=== PATIENT | female | born 1990 | race Asian ===

== ENCOUNTER 2016-10-19 22:32 | Emergency (ER) | payer BC, OTHER ==
--- NOTE | 2016-10-19 22:34 | PDOC ---
History of Present Illness - General Chief Complaint: Pain, Acute Stated Complaint: RT FLANK/BACK PAIN History Source: Patient Exam Limitations: No Limitations - History of Present Illness Initial Comments: 10/19/16 22:40 26 yo healthy female was seen yesterday for sinusitis, cleocin, steroid and inhaler, was laying down tonight when she suddenly got pain in the right flank that radiated around to her groin. no hematuria, no relief with bm. came straight to the hospital. lmp one week ago. Denies . No other symptoms, No history of kidney stone. Timing/Duration: 1 hour Severity: severe Modifying Factors: improves with: other (nothing.) Associated Symptoms: denies: denies symptoms Past History - Past Medical History Allergies/Adverse Reactions: Allergies Allergy/AdvReac Type Severity Reaction Status Date / Time No Known Allergies Allergy Verified 10/18/16 12:51 Home Medications: Ambulatory Orders Albuterol 0.083% Nebulizer Rossana [Ventolin 0.083% Nebulizer Soln -] 1 amp NEB QID PRN #1 box 10/18/16 Albuterol Sulfate Inhaler - [Ventolin HFA Inhaler -] 1 - 2 inh PO Q4H PRN #1 inhaler 10/18/16 Clindamycin [Cleocin -] 300 mg PO BID 10/18/16 Cholecalciferol (Vitamin D3) [Vitamin D3 -] 400 unit PO DAILY 10/19/16 Norgestimate-Ethinyl Estradiol [Tri-Sprintec Tablet] 1 each PO DAILY 10/19/16 Prednisone 10/19/16 Dicyclomine HCl [Bentyl -] 20 mg PO Q8H #21 tablet 10/20/16 Ondansetron [Ondansetron Odt] 8 mg PO TID #30 tab.rapdis 10/20/16 Oxycodone HCl/Acetaminophen [Percocet 5-325 mg Tablet] 1 tab PO Q6H #20 tablet MDD 5 10/20/16 Anemia: No Asthma: Yes Cancer: No Cardiac Disorders: No CVA: No COPD: No CHF: No Dementia: No Diabetes: No GI Disorders: No Disorders: No HTN: No Hypercholesterolemia: No Liver Disease: No Seizures: No Thyroid Disease: No - Surgical History Abdominal Surgery: No Appendectomy: No Cardiac Surgery: No Cholecystectomy: No Lung Surgery: No Neurologic Surgery: No Orthopedic Surgery: No - Immunization History Td Vaccination: Yes - Psycho/Social/Smoking Cessation Hx Anxiety: No Suicidal Ideation: No Smoking Status: No Smoking History: Never smoked Have you smoked in the past 12 months: No Number of Cigarettes Smoked Daily: 0 Hx Alcohol Use: No Drug/Substance Use Hx: No Substance Use Type: None Hx Substance Use Treatment: No Review of Systems - Review of Systems Constitutional: Yes: See HPI HEENTM: Yes: See HPI Respiratory: Yes: See HPI Cardiac (ROS): No: Symptoms Reported ABD/GI: Yes: See HPI : Yes: See HPI Musculoskeletal: No: Symptoms Reported Integumentary: No: Symptoms Reported Neurological: No: Symptoms reported Psychiatric: No: Anxiety, Depression, Emotional Problems Endocrine: No: Symptoms Reported Hematologic/Lymphatic: No: Symptoms Reported All Other Systems: Reviewed and Negative *Physical Exam - Physical Exam General Appearance: No: Apparent Distress HEENT: positive: EOMI, BENJAMIN, Normal ENT Inspection Neck: positive: Supple Respiratory/Chest: positive: Lungs Clear, Normal Breath Sounds Cardiovascular: positive: Regular Rhythm, Regular Rate Gastrointestinal/Abdominal: positive: Normal Bowel Sounds, Flat, Soft. negative : Tender, Guarding, Rebound, Hepatomegaly, Spleenomegaly Lymphatic: negative: Adenopathy, Tenderness Musculoskeletal: positive: Normal Inspection Extremity: positive: Normal Capillary Refill, Normal Inspection Integumentary: positive: Normal Color, Dry, Warm Neurologic: positive: rn procedures II-XII NML intact, Fully Oriented, Alert, Normal Mood/ Affect ED Treatment Course - LABORATORY CBC & Chemistry Diagram: 10/19/16 22:50 10/19/16 22:50 Medical Decision Making - Medical Decision Making 10/20/16 00:[address] Abdomen/Pelvis - normal/nondiagnostic/benign. Will DC home with symptomatic supportive treatement and have her follow up with her doctor tomorrow. *DC/Admit/Observation/Transfer Diagnosis at time of Disposition: Flank pain Abdominal pain Qualifiers: Abdominal location: right lower quadrant Qualified Code(s): R10.31 - Right lower quadrant pain - Discharge Dispostion Disposition: HOME Condition at time of disposition: Good Admit: No - Prescriptions Prescriptions: Dicyclomine HCl [Bentyl -] 20 mg PO Q8H #21 tablet Oxycodone HCl/Acetaminophen [Percocet 5-325 mg Tablet] 1 tab PO Q6H #20 tablet MDD 5 Ondansetron [Ondansetron Odt] 8 mg PO TID #30 tab.rapdis - Patient Instructions Printed Discharge Instructions: DI for Abdominal Pain-Adult Additional Instructions: Ely- Your CT scan does not show a stone, or any problem right now. Your lab tests are normal. It is not clear why you are having such pain. I sent prescriptions for pain, cramping and nausea/vomiting to your pharmacy. Rest, Clear Liquids Only, Meds as needed, Follow up with your doctor later today. Errol- Dr. Subhash Colon
[2016-10-19] MEDS ORDERED: ONDANSETRON 4 MG/2 ML VIAL IVPUSH ONE ×2 (22:35→23:53)
[2016-10-19] MEDS ORDERED: morphine CARPU-JECT 4 MG/1 ML DISP.SYRIN IVPUSH ONE ×2 (22:35→23:53)
[2016-10-19] MEDS ORDERED: KETOROLAC TROMETHAMINE 30 MG/1 ML VIAL IM ONE (22:35)
[2016-10-19] MEDS ORDERED: SODIUM CHLORIDE 1,000 ML IV STA (22:36)
[2016-10-19 22:40] VITALS: BP 141/91; PULSE 97; TEMP 97.8; BMI 37.1
[2016-10-19] MEDS ORDERED: ONDANSETRON 4 MG/2 ML VIAL ONE (22:45)
[2016-10-19] MEDS ORDERED: morphine CARPU-JECT 10 MG/1 ML DISP.SYRIN ONE (22:45)
[2016-10-19] MEDS ORDERED: KETOROLAC TROMETHAMINE 30 MG/1 ML VIAL ONE (22:45)
[2016-10-19 23:03] LABS: PH,URINE 6.5 (4.5-8); URINE APPEARANCE Clear; URINE BILIRUBIN Negative (NEGATIVE); URINE GLUCOSE (UA) Trace (NEGATIVE); URINE KETONE Trace (NEGATIVE); URINE LEUK ESTERASE Negative (NEGATIVE); URINE NITRITE Negative (NEGATIVE); URINE UROBILINOGEN 0.2 E.U/dl (0.2-1.0)
[2016-10-19 23:15] LABS: BASOPHIL 0.3 % (0-2.0); EOSINOPHIL 0.2 % (0-4.5); MCH 25.9 pg (25.7-33.7); MCHC 31.9 g/dl (32.0-36.0); MEAN CELL VOLUME 81.3 fl (80-96); NEUTROPHILS 75.5 % (42.8-82.8); PLATELET COUNT 335 K/MM3 (134-434); RDW 11.9 % (11.6-15.6); WHITE BLOOD COUNT 11.8 K/mm3 (4.0-10.0)
[2016-10-19 23:26] LABS: URINE BLOOD 1+ (NEGATIVE); URINE COLOR YELLOW; URINE PROTEIN 1+ (NEGATIVE)
[2016-10-19 23:29] LABS: ALBUMIN 3.7 g/dl (3.5-5.0); ALK PHOS 88 U/L (32-92); ANION GAP 5 (8-16); BILIRUBIN,TOTAL 0.3 mg/dl (0.2-1.0); CALCIUM 8.9 mg/dl (8.4-10.2); CO2 27 mmol/L (22-28); CREATININE 0.7 mg/dl (0.6-1.3); GLUCOSE,RANDOM 270 mg/dl (74-106); SGOT/AST 36 U/L (10-42); SGPT/ALT 20 U/L (10-40); TOT PROT 7.3 g/dl (6.4-8.3)
[2016-10-20] MEDS ORDERED: SIMETHICONE 80 MG TAB.CHEW (FP) PO ONE (00:01)
[2016-10-20] MEDS ORDERED: SIMETHICONE 80 MG TAB.CHEW (FP) ONE (00:09)
== END 2016-10-20 00:21 | disposition home or self-care (01) ==
LOC: FER 22:32
PROC: 3E0233Z Introduction of Anti-inflammatory into Muscle, Percutaneous Approach (ICD-10-PCS; principal; 2016-10-19)
PROC: 3E033NZ Introduction of Analgesics, Hypnotics, Sedatives into Peripheral Vein, Percutaneous Approach (ICD-10-PCS; 2016-10-19)
PROC: 3E033GC Introduction of Other Therapeutic Substance into Peripheral Vein, Percutaneous Approach (ICD-10-PCS; 2016-10-19)
PROC: 3E0337Z Introduction of Electrolytic and Water Balance Substance into Peripheral Vein, Percutaneous Approach (ICD-10-PCS; 2016-10-19)
DX: R10.31 Right lower quadrant pain (principal); J45.909 Unspecified asthma, uncomplicated
CPT/HCPCS: 36415; 74176-TC; 80053; 81003; 81015; 84703; 85025; 87086; 99283-25

== ENCOUNTER 2017-02-25 22:42 | Emergency (ER) | payer BC, OTHER ==
[2017-02-25 22:48] VITALS: BP 119/73; PULSE 87; TEMP 98.3; BMI 40.3
--- NOTE | 2017-02-25 23:29 | PDOC ---
History of Present Illness - General Chief Complaint: Cold Symptoms Stated Complaint: SINUS INFECTION Time Seen by Provider: 02/25/17 22:44 History Source: Patient Exam Limitations: No Limitations - History of Present Illness Initial Comments: 02/25/17 23:25 This is a 27-year-old female who comes in complaining of cough, congestion, exacerbation of her seasonal ALLERGIES. Patient takes Flonase, Zaditor, Rachael pot and other [id number] medications for her seasonal ALLERGIES. Patient said that she gets a sinus infection about 4-5 times a year. Patient comes in thinking she may have an early sign U situs and is asking for antibiotics. Patient denies any fevers or chills. Patient is otherwise healthy. Past medical history:Sinusitis and seasonal ALLERGIES PAST SURGICAL HISTORY: no significant history FAMILY HISTORY: no pertinant history SOCIAL HISTORY: Pt lives with family and is employed. MEDICATIONS: reviewed ALLERGIES: As per nursing notes Review of Systems General: No fevers or chills, no weakness, no weight loss HEENT: No change in vision. No sore throat,. No ear pain CardioVascular: No chest pain or shortness of breath Respiratory:+ cough, or wheezing. Gastrointestinal: no nausea, vomitting, diarrhea or constipation, No rectal bleeding Genitourinary: No dysuria, hematuria, or frequency Musculoskeletal: No joint or muscle pain or swelling Neurologic: No headache, vertigo, dizziness or loss of consciousness Psychiatric: nor depression Skin: No rashes or easy bruising Endocrine: no increased thirst or abnormal weight change Allergic: no skin or latex allergy All other systems reviewed and normal Exam: General: Well-nourished well-developed individual, no acute distress HEENT: Throat: Normal, tonsils normal, no erythema or exudate There is no tenderness on palpation of the frontal or maxillary sinuses. There is no nasal to it. Discharge patient is noted to have a dry cough. Neck: Supple, no meningeal signs, no lymphadenopathy Eyes::Pupils equal reactive and round, extraocular motion intact Chest: Nontender to palpation Cardiac: S1-S2 normal, regular rate and rhythm, no murmurs rubs or gallops Respiratory: Lungs clear to auscultation bilateral Abdomen: Soft, nondistended, normal bowel sounds, nontender to palpation diffusely Extremities: Warm, dry, no cyanosis, clubbing, or edema Skin: No rashes Neuro: Alert and oriented x3, nonfocal exam, grossly intact, normal gait Psych: Normal mood and affect Assessment and plan: This is a 27-year-old female who comes in complaining of cough, congestion and exacerbation of her seasonal ALLERGIES. Patient is already on antihistamines and nasal decongestions. Patient is concerned she may have an early sinusitis. Patient does not have any indication of a sinusitis at this time however I did call a prescription into her pharmacy as she is quite certain she will most likely developed a sinusitis within the next several days. I told patient that if she does not have a fever or symptoms do not worsen she should not take the antibiotics but follow-up with her primary care doctor. Past History - Past Medical History Allergies/Adverse Reactions: Allergies Allergy/AdvReac Type Severity Reaction Status Date / Time No Known Allergies Allergy Verified 10/18/16 12:51 Home Medications: Ambulatory Orders Norgestimate-Ethinyl Estradiol [Tri-Sprintec Tablet] 1 each PO DAILY 10/19/16 Azithromycin 250 mg PO DAILY #6 tab 02/25/17 Cetirizine HCl [Zyrtec -] 10 mg PO DAILY 02/25/17 Anemia: No Asthma: (SEASONAL ALLERGIES) Cancer: No Cardiac Disorders: No CVA: No COPD: No CHF: No Dementia: No Diabetes: No GI Disorders: No Disorders: No HTN: No Hypercholesterolemia: No Liver Disease: No Seizures: No Thyroid Disease: No - Surgical History Abdominal Surgery: Yes (LAPAROSCOPY) Appendectomy: No Cardiac Surgery: No Cholecystectomy: No Lung Surgery: No Neurologic Surgery: No Orthopedic Surgery: No - Immunization History Td Vaccination: Yes - Psycho/Social/Smoking Cessation Hx Anxiety: No Suicidal Ideation: No Smoking Status: No Smoking History: Never smoked Have you smoked in the past 12 months: No Number of Cigarettes Smoked Daily: 0 Hx Alcohol Use: No Drug/Substance Use Hx: No Substance Use Type: None Hx Substance Use Treatment: No *Physical Exam - Vital Signs Last Vital Signs Temp Pulse Resp BP Pulse Ox 98.3 F 87 16 119/73 99 02/25/17 22:46 02/25/17 22:46 02/25/17 22:46 02/25/17 22:46 02/25/17 22:46 *DC/Admit/Observation/Transfer Diagnosis at time of Disposition: Cough Seasonal allergic rhinitis Qualifiers: Allergic rhinitis trigger: unspecified Qualified Code(s): J30.2 - Other seasonal allergic rhinitis - Discharge Dispostion Disposition: HOME Condition at time of disposition: Stable - Prescriptions Prescriptions: Azithromycin 250 mg PO DAILY #6 tab - Patient Instructions Additional Instructions: continue all of your seasonal ALLERGY medications as prescribed. If you develop increasing pain in the area of his sinuses along with fever and green or yellow discharge from your nose get the prescription filled for azithromycin take as prescribed. Return to the emergency department immediately with ANY new, persistent or worsening symptoms. Continue any medications as previously prescribed by your physician. You should follow up with your primary doctor as soon as possible regarding today's emergency department visit. . Please make sure your doctor reviews the results of your emergency evaluation. Thank you for coming to the Emergency Department today for your care. It was a pleasure to see you today. Please note that your evaluation is INCOMPLETE until you follow-up with your doctor.
== END 2017-02-25 23:34 | disposition home or self-care (01) ==
LOC: FER 22:42
DX: J30.2 Other seasonal allergic rhinitis (principal); R05 Cough
CPT/HCPCS: 99282-25

== ENCOUNTER 2018-10-07 21:05 | Emergency (ER) | payer BC, OTHER ==
[2018-10-07 21:14] VITALS: BP 120/72; PULSE 94; TEMP 98; BMI 81.8
--- NOTE | 2018-10-07 22:21 | PDOC ---
History of Present Illness - History of Present Illness Initial Comments: This patient is a 28 year old female, with PMHx of migraines, gestational diabetes, asthma, who presents with vaginal itching and anal irritation for a couple of days. Patient states that a couple of days ago she began experiencing anal irritation, and now she states that it has spread to her vaginal area. She states that the irritation has been getting progressively worse and she has been experiencing extreme itchiness, especially at night. She states that when she wiped, she noticed a white strip, which looked like a pinworm. She wiped a second time and noticed another white strip. She states that she has an 11 month old, 2 year old, and 3 year old and states that they havent been itching or seem to be infected. Denies recent travel, unusual water ingestion. Abd and perianal. normal No evidence of hemorrhoids, lesions, or worms. PCP: Fozia Koo 10/07/18 22:26 <Ely Faulkner - Last Filed: 10/07/18 22:26> <Mercedes Barbosa - Last Filed: 10/08/18 01:55> - General Chief Complaint: Itching Stated Complaint: ANAL IRRITATION,VAGINAL ITCHING Time Seen by Provider: 10/07/18 21:16 Past History <Ely Faulkner - Last Filed: 10/07/18 22:26> - Past Medical History Anemia: No Asthma: Yes (SEASONAL ALLERGIES) Cancer: No Cardiac Disorders: No CVA: No COPD: No CHF: No Dementia: No Diabetes: No GI Disorders: No Disorders: No HTN: No Hypercholesterolemia: No Liver Disease: No Seizures: No Thyroid Disease: No - Surgical History Abdominal Surgery: Yes (LAPAROSCOPY ENDOMETRIOSIS) Appendectomy: No Cardiac Surgery: No Cholecystectomy: No Lung Surgery: No Neurologic Surgery: No Orthopedic Surgery: No - Immunization History Td Vaccination: Yes - Suicide/Smoking/Psychosocial Hx Smoking Status: No Smoking History: Never smoked Have you smoked in the past 12 months: No Number of Cigarettes Smoked Daily: 0 Information on smoking cessation initiated: No Hx Alcohol Use: No Drug/Substance Use Hx: No Substance Use Type: None Hx Substance Use Treatment: No <Mercedes Barbosa - Last Filed: 10/08/18 01:55> - Past Medical History Allergies/Adverse Reactions: Allergies Allergy/AdvReac Type Severity Reaction Status Date / Time No Known Allergies Allergy Verified 10/07/18 21:07 Home Medications: Ambulatory Orders Cetirizine HCl [Zyrtec -] 10 mg PO DAILY 02/25/17 Review of Systems - Review of Systems Comments:: GENERAL/CONSTITUTIONAL: No fever or chills. No weakness. HEAD, EYES, EARS, NOSE AND THROAT: No change in vision. No ear pain or discharge. No sore throat. CARDIOVASCULAR: No chest pain or shortness of breath. RESPIRATORY: No cough, wheezing, or hemoptysis. GASTROINTESTINAL: +anal itching, No nausea, vomiting, diarrhea or constipation. GENITOURINARY: +vaginal itching. No dysuria, frequency, or change in urination. MUSCULOSKELETAL: No joint or muscle swelling or pain. No neck or back pain. SKIN: No rash NEUROLOGIC: No headache, vertigo, loss of consciousness, or change in strength/ sensation. ENDOCRINE: No increased thirst. No abnormal weight change. HEMATOLOGIC/LYMPHATIC: No anemia, easy bleeding, or history of blood clots. ALLERGIC/IMMUNOLOGIC: No hives or skin allergy. 10/07/18 22:27 <Ely Faulkner - Last Filed: 10/07/18 22:26> *Physical Exam - Vital Signs Last Vital Signs Temp Pulse Resp BP Pulse Ox 98 F 94 H 18 120/72 100 10/07/18 21:10 10/07/18 21:10 10/07/18 21:10 10/07/18 21:10 10/07/18 21:10 - Physical Exam Comments: GENERAL: Awake, alert, and fully oriented, in no acute distress ABDOMEN: Soft, nontender, normoactive bowel sounds. No guarding, no rebound. No masses SKIN: Warm, Dry, normal turgor, no rashes or lesions noted. Perianal Exam: No evidence of hemorrhoids, lesions, or worms. 10/07/18 22:28 <Ely Faulkner - Last Filed: 10/07/18 22:26> - Vital Signs Last Vital Signs Temp Pulse Resp BP Pulse Ox 98 F 94 H 18 120/72 100 10/07/18 21:10 10/07/18 21:10 10/07/18 21:10 10/07/18 21:10 10/07/18 21:10 <Mercedes Barbosa - Last Filed: 10/08/18 01:55> Moderate Sedation - Procedure Monitoring Vital Signs: Procedure Monitoring Vital Signs Temperature 98 F 10/07/18 21:10 Pulse Rate 94 H 10/07/18 21:10 Respiratory Rate 18 10/07/18 21:10 Blood Pressure 120/72 10/07/18 21:10 O2 Sat by Pulse Oximetry (%) 100 10/07/18 21:10 <Ely Faulkner - Last Filed: 10/07/18 22:26> - Procedure Monitoring Vital Signs: Procedure Monitoring Vital Signs Temperature 98 F 10/07/18 21:10 Pulse Rate 94 H 10/07/18 21:10 Respiratory Rate 18 10/07/18 21:10 Blood Pressure 120/72 10/07/18 21:10 O2 Sat by Pulse Oximetry (%) 100 10/07/18 21:10 <Mercedes Barbosa - Last Filed: 10/08/18 01:55> Medical Decision Making - Medical Decision Making Documentation has been prepared under my direction and personally reviewed by me in its entirety. I attest that this documented accurately reflects all work, treatment, procedures and medical decision making performed by me. As noted above, this 28-year-old woman presents with a few day history of perianal pruritus, especially severe at night. The itching has now progressed anteriorly to her exterior vulva. The patient was able to obtain strands resembling small worms from her perianal area. Patient has young children (a 2- year-old and 3-year-old). The older child attends daycare; no history of worms in either child or in the patient. No symptoms consistent with worm infestation in either child currently. Exam as noted. No evidence of worms in the vulvar or perianal area. No evidence of other abnormality such as external hemorrhoids seen on exam. Patient brought samples of the worms in paper toweling: Although microscope not available for close examination, gross examination consistent with pinworms. Because of the extreme pruritus, increase of symptoms at night and gross appearance of worms, clinical presentation most consistent with pinworm infestation. Because of the ongoing shortage of albendazole, the patient's [facility] pharmacy([facility]) was called: Albendazole as well as OTC pyrantel are out of stock in this pharmacy. Preliminary call to [facility] in [place] appeared that these medications were in stock at the store. Patient states that she cannot use [facility] with her insurance plan. She states that she would purchase the pyrantel either at [facility] in [place] or another [facility] branch. <Mercedes Barbosa - Last Filed: 10/08/18 01:55> *DC/Admit/Observation/Transfer - Attestations Scribe Attestion: 10/07/18 22:30 Documentation prepared by Ely Faulkner, acting as medical equipment technician for Mercedes Barbosa MD. <Ely Faulkner - Last Filed: 10/07/18 22:26> <Mercedes Barbosa - Last Filed: 10/08/18 01:55> Diagnosis at time of Disposition: Enterobius vermicularis - Discharge Dispostion Disposition: HOME Condition at time of disposition: Stable - Referrals Referrals: Fozia Becker MD [Primary Care Provider] - - Patient Instructions Printed Discharge Instructions: Pinworm Additional Instructions: Pyrantel(Pin-X) 1 g by mouth tomorrow with second dose of 1 g in 2 weeks Follow-up with your doctor within 5 days Have children checked by surveying teacher for presence of worms Return to ER if symptoms persist - Post Discharge Activity
== END 2018-10-07 22:43 | disposition home or self-care (01) ==
LOC: FER 21:05
DX: B80 Enterobiasis (principal)
CPT/HCPCS: 99281-25

== ENCOUNTER 2019-09-13 04:36 | Day surgery (SDC) | payer BC, OTHER ==
[2019-09-11 14:57] VITALS: BMI 38.7
--- NOTE | 2019-09-12 15:42 | HP ---
Satellite [facility] - Chief Complaint Chief Complaint: right wrist mass - Past Medical History Allergies/Adverse Reactions: Allergies Allergy/AdvReac Type Severity Reaction Status Date / Time No Known Allergies Allergy Verified 09/11/19 14:57 ...LMP: 08/26/19 - Current Medications Current Medications: Home Medications Medication Instructions Recorded Cetirizine HCl [Zyrtec -] 10 mg PO DAILY 02/25/17 metFORMIN HCL [Metformin HCl] 500 mg PO BID 09/11/19 Satellite Physical Exam - Physical Examination General Appearance: Well Nourished, Well Developed, Alert & Oriented x3 ENT: Clear Lung: Normal air movement Extremities: Other (right wrist- + mass, + ttp, good rom, nvi) Neurological: Intact, Alert, Oriented Satellite Impression/Plan - Impression/Plan Impression: right wrist mass Operative Procedure: right wrist mass excision Date to be Performed: 09/12/19
[2019-09-13] MEDS ORDERED: LIDOCAINE HCL 1%, 10 MG/ML (20ML VIAL) ONE (07:20)
[2019-09-13] MEDS ORDERED: BUPIVACAINE HCL/PF 0.5% (5 MG/ML) 30 ML VIAL IJ ONE ×3 (07:20→07:46)
[2019-09-13] MEDS ORDERED: LIDOCAINE HCL 1%, 10 MG/ML (20ML VIAL) NR ONE (07:46)
[2019-09-13] MEDS ORDERED: PROPOFOL 20 ML ONE ×3 (07:50→07:54)
[2019-09-13] MEDS ORDERED: MIDAZOLAM HCL 2 MG/2 ML SINGLE DOSE VIAL ONE ×3 (07:50→08:17)
[2019-09-13] MEDS ORDERED: SUCCINYLCHOLINE CHLORIDE 200 MG/10 ML SYRINGE ONE (07:50)
[2019-09-13] MEDS ORDERED: LIDOCAINE HCL/PF 2% SDV 5ML VIAL ONE (07:54)
[2019-09-13] MEDS ORDERED: ceFAZolin SODIUM 1 GM VIAL ONE ×2 (08:11)
[2019-09-13] MEDS ORDERED: DEXAMETHASONE SOD PHOSPHATE 4 MG/1 ML VIAL ONE (08:20)
[2019-09-13] MEDS ORDERED: KETOROLAC TROMETHAMINE 30 MG/1 ML VIAL ONE (08:32)
[2019-09-13] MEDS ORDERED: ceFAZolin SODIUM 1 GM VIAL IVPB ONE (08:34)
--- NOTE | 2019-09-13 08:47 | OP ---
Operative Note - Note: Operative Date: 09/13/19 ([facility]) Pre-Operative Diagnosis: right wrist ganglion cyst Operation: right wrist ganglion excision Post-Operative Diagnosis: Same as Pre-op Surgeon: Piter Monge Guest Relations Receptionist: Ochoa Goldman Anesthesia: General, Local Specimens Removed: ganglion cyst Estimated Blood Loss (mls): 0 (tourniquet)
--- NOTE | 2019-09-13 10:18 | OP ---
DATE OF OPERATION: 09/13/2019 PREOPERATIVE DIAGNOSIS: Right wrist dorsal ganglion cyst. POSTOPERATIVE DIAGNOSIS: Right wrist dorsal ganglion cyst. PROCEDURE: Excision, mass/ganglion cyst, right wrist. SURGEON: Piter Monge MD STEEL MELTER: Bartolome Putnam MD TURKEY PINNER: EMMETT Calvo-LINEN CLERK ANESTHESIA: MAC anesthesia with local injection of 15 mL of 0.5% Marcaine and 1% lidocaine mix. DRAINS: None. COMPLICATIONS: None. SPECIMEN: Mass, right wrist, ganglion cyst. BLOOD LOSS: None. BLOOD GIVEN: None. FLUID REPLACEMENT: Plasma-Lyte, 500 mL. INDICATIONS: This patient is a 29-year-old female with the preoperative diagnosis of a recurrent painful mass on the dorsal aspect of the right wrist, likely a ganglion cyst. After understanding the potential risks, complications, alternatives and benefits of surgery versus nonsurgical treatment the patient elected to undergo this procedure. DESCRIPTION OF PROCEDURE: The patient was brought to the operating room, peripheral IV placed and IV sedation given. Ancef 2 g IV were given. MAC anesthesia was induced. The right upper extremity was prepped and draped in sterile fashion. A longitudinal incision marked out with a marking pen. Marcaine 0.5% and 1% lidocaine mix, 10 mL, was injected in and around the surgical incision. The right upper extremity was then elevated, exsanguinated with an Esmarch bandage and tourniquet inflated to 250 mmHg. A No. 15 scalpel blade was utilized to cut down through the skin, subcutaneous tissue. Hemostasis achieved with the bipolar cautery. Dissection done through the deep dermal layer. A small cricket and then Weitlaner retractor were placed into the wound. There was an obvious mass underneath the dorsal extensor retinaculum. The retinaculum was incised longitudinally. More of this mass then pushed through dorsally. I was able to separate it from the surrounding inflammatory tenosynovium and the extensor tendons. The Weitlaner retractor was adjusted to include the extensor tendons. I was then able to identify its relatively wide stalk going down to the dorsal wrist compartment. Circumferential dissection was done. It was decapitated at its base and passed off the field as specimen. I was able to excise the entire mass and the stalk. The area was copiously irrigated and washed out. The base was cauterized. I did not see any other abnormal tissue. The area was copiously irrigated and washed out again and bathed with local anesthetic. The deep dermal layer was closed with 4-0 undyed Vicryl. Final skin reapproximation was done with a running subcuticular 4- Biosyn stitch. The area was then washed and dried and covered with Steri-Strips, 4 x 4 gauze, fluffs between the fingers, Webril and Coban. Tourniquet was taken down after a total tourniquet time of 19 minutes. BARTOLOME PUTNAM M.D. [id number]
[2019-09-13] MEDS ORDERED: ONDANSETRON 4 MG/2 ML VIAL IVPUSH PRN (10:26)
[2019-09-13] MEDS ORDERED: oxyCODONE HCL 5 MG TABLET PO PRN ×2 (10:26)
[2019-09-13] MEDS ORDERED: LACTATED RINGERS SOLUTION 1,000 ML IV SCH (10:30)
[2019-09-13 10:45] VITALS: BP 97/61; PULSE 74; TEMP 98
--- NOTE | 2019-09-15 19:06 | PATH ---
Surgical Pathology Report Patient Name: QIANA GIBBONS [facility]. Rec. #: [id number] /Age/Gender: 1990 (Age: 29) / F Account: [id number] Location: [facility] SURGICAL Taken: 09/13/2019 Received: 09/13/2019 Reported: 09/15/2019 Physicians: Ochoa Goldman M.D. Specimen(s) Received RIGHT WRIST GANGLION Clinical History Right wrist mass ganglion cyst Final Diagnosis WRIST, GANGLION CYST, RIGHT, EXCISION: BENIGN DENSE FIBROCONNECTIVE TISSUE WITH DEGENERATIVE CHANGES CONSISTENT WITH GANGLION CYST. Electronically Signed Concepción Hazel M.D. Gross Description Received in formalin labeled "right wrist ganglion cyst," is a 2.0 x 1.3 x 0.8 cm aggregate of myers, irregular portions of soft tissue, consistent with a disrupted cyst. Weapons Designer sections are submitted in one cassette. /09/13/201909/13/2019
== END 2019-09-13 12:30 | disposition home or self-care (01) ==
LOC: JASU-SURG 04:36
PROVIDERS: ATTEND Orthopaedic Surgery
PROC: 0LB50ZZ Excision of Right Lower Arm and Wrist Tendon, Open Approach (ICD-10-PCS; principal; 2019-09-13 08:00)
DX: M67.431 Ganglion, right wrist (principal)
CPT/HCPCS: 84703; 88304-TC

== ENCOUNTER 2021-07-23 14:31 | Emergency (ER) | payer BC, OTHER ==
[2021-07-23 15:19] VITALS: BP 114/76; PULSE 88; TEMP 98.5; BMI 38.7
[2021-07-23] MEDS ORDERED: guaiFENesin/CODEINE 10 ML UNIT-DOSE CUPS PO ONE (15:25)
[2021-07-23] MEDS ORDERED: DEXAMETHASONE LIQUID 0.5 MG/5 ML PO ONE (15:25)
[2021-07-23] MEDS ORDERED: ALBUTEROL SO4 2.5/IPRATROPIUM 0.5 INH SOL 3 ML VIAL.NEB. NEB SCH (15:30)
[2021-07-23] MEDS ORDERED: DEXAMETHASONE SOD PHOSPHATE 10 MG/1 ML VIAL ONE (15:34)
[2021-07-23] MEDS ORDERED: guaiFENesin/CODEINE 5 ML UNIT-DOSE CUPS PO ONE (15:34)
[2021-07-23 16:14] LABS: BASO % 0.7 % (0-2.0); EOS % 5.4 % (0-4.5); HEMATOCRIT 36.3 % (32.4-45.2); LYMPH % 32.7 % (8-40); MCH 26.4 pg (25.7-33.7); MCHC 33.1 g/dl (32.0-36.0); MEAN CELL VOLUME 79.7 fl (80-96); MEAN PLT VOLUME 7.2 fl (7.5-11.1); MONO % 7.1 % (3.8-10.2); NEUT % 54.1 % (42.8-82.8); PLATELET COUNT 335 10^3/uL (134-434); RBC 4.55 M/mm3 (3.60-5.2); RDW 13.8 % (11.6-15.6); WHITE BLOOD COUNT 12.3 K/mm3 (4.0-10.0)
[2021-07-23 16:28] LABS: CALCIUM 8.5 mg/dL (8.5-10.1)
[2021-07-23 16:29] LABS: ALBUMIN 3.4 g/dl (3.4-5.0); BLOOD UREA NITROGEN 15.1 mg/dL (7-18)
[2021-07-23 16:32] LABS: CREATININE 0.7 mg/dL (0.55-1.3)
[2021-07-23 16:34] LABS: BILIRUBIN,TOTAL 0.2 mg/dL (0.2-1); TOT PROT 7.5 g/dl (6.4-8.2)
== END 2021-07-23 17:51 | disposition home or self-care (01) ==
LOC: JER 14:31
PROC: 3E0F7GC Introduction of Other Therapeutic Substance into Respiratory Tract, Via Natural or Artificial Opening (ICD-10-PCS; principal; 2021-07-23)
DX: J20.9 Acute bronchitis, unspecified (principal); J45.21 Mild intermittent asthma with (acute) exacerbation
CPT/HCPCS: 36415; 71046-TC-FY; 80053; 85025; 99284-25; C9803; U0003; U0005

== ENCOUNTER 2021-08-28 16:22 | Emergency (ER) | payer BC, OTHER ==
[2021-08-28 16:32] VITALS: TEMP 97.8; BMI 38.7
[2021-08-28] MEDS ORDERED: ACETAMINOPHEN 1000 MG/100 ML VIAL IVPB ONE (17:17)
[2021-08-28] MEDS ORDERED: LIDOCAINE 5% TOPICAL PATCH TP ONE (17:17)
[2021-08-28] MEDS ORDERED: ACETAMINOPHEN INJECTION 100 ML IVPB ONE (18:01)
[2021-08-28] MEDS ORDERED: LIDOCAINE 5% TOPICAL PATCH ONE (18:02)
[2021-08-28 18:29] LABS: BASO % 0.3 % (0-2.0); EOS % 3.1 % (0-4.5); HEMATOCRIT 36.8 % (32.4-45.2); HEMOGLOBIN 12.1 GM/dL (10.7-15.3); LYMPH % 24.1 % (8-40); MCH 26.4 pg (25.7-33.7); MEAN PLT VOLUME 7.6 fl (7.5-11.1); MONO % 6.9 % (3.8-10.2); NEUT % 65.6 % (42.8-82.8); PLATELET COUNT 292 10^3/uL (134-434); RDW 13.4 % (11.6-15.6); WHITE BLOOD COUNT 12.8 K/mm3 (4.0-10.0)
[2021-08-28 18:36] LABS: INR 1.04 (0.83-1.09); PROTHROMBIN TIME (PATIENT) 11.7 SEC (9.7-13.0)
[2021-08-28 18:39] LABS: CHLORIDE 104 mmol/L (98-107); SODIUM 138 mmol/L (136-145)
[2021-08-28 18:41] LABS: CALCIUM 8.8 mg/dL (8.5-10.1)
[2021-08-28 18:42] LABS: ALBUMIN 3.4 g/dl (3.4-5.0); ANION GAP 7 MMOL/L (8-16); BLOOD UREA NITROGEN 13.3 mg/dL (7-18); CO2 26 mmol/L (21-32); GLUCOSE,RANDOM 197 mg/dL (74-106); MAGNESIUM 2.1 mg/dL (1.8-2.4)
[2021-08-28 18:45] LABS: CREATININE 0.7 mg/dL (0.55-1.3); SGOT/AST 14 U/L (15-37); SGPT/ALT 26 U/L (13-61)
[2021-08-28 18:46] LABS: BILIRUBIN,TOTAL 0.2 mg/dL (0.2-1); TOT PROT 7.3 g/dl (6.4-8.2)
[2021-08-28 18:47] LABS: ALK PHOS 100 U/L (45-117)
[2021-08-28 19:38] VITALS: BP 140/70; PULSE 86
[2021-08-28] MEDS ORDERED: LIDOCAINE PATCH REMOVAL MC SCH (22:00)
== END 2021-08-28 20:45 | disposition home or self-care (01) ==
LOC: JER 16:22
PROC: 3E033NZ Introduction of Analgesics, Hypnotics, Sedatives into Peripheral Vein, Percutaneous Approach (ICD-10-PCS; principal; 2021-08-28)
DX: R07.9 Chest pain, unspecified (principal)
CPT/HCPCS: 36415; 71046-TC-FY; 80053; 83735; 84443; 84484; 84703; 85025; 85610; 85730; 93005; 93010; 99284-25; C9803; J0131; U0003; U0005

== ENCOUNTER 2023-09-18 00:22 | Emergency (ER) | payer BC, OTHER ==
[2023-09-18 00:30] VITALS: BP 143/92; PULSE 103; RESP 20; TEMP 98; BMI 39.1
[2023-09-18] MEDS ORDERED: IBUPROFEN 600 MG TABLET (FP) PO ONE ×2 (00:35→00:38)
[2023-09-18] MEDS ORDERED: AZITHROMYCIN 500 MG TABLET PO ONE (01:24)
[2023-09-18] MEDS ORDERED: AZITHROMYCIN 500 MG TABLET ONE (01:30)
== END 2023-09-18 01:31 | disposition home or self-care (01) ==
LOC: FER 00:22
DX: R05.1 Acute cough (principal); J18.9 Pneumonia, unspecified organism; Z20.822 Contact with and (suspected) exposure to COVID-19
CPT/HCPCS: 0241U-QW; 71046-TC-FY; 87651; 99284-25

== ENCOUNTER 2024-01-19 15:15 | Emergency (ER) | payer BC, OTHER ==
[2024-01-19 15:28] VITALS: BP 142/95; PULSE 71; RESP 20; TEMP 98.2; BMI 35.5
[2024-01-19 15:50] LABS: EPITHELIAL CELLS 21-50 /hpf
[2024-01-19] MEDS: LIDOCAINE 5% TOPICAL PATCH TP ONE (15:54)
[2024-01-19] MEDS: IBUPROFEN 600 MG TABLET (FP) PO ONE (15:55)
[2024-01-19] MEDS ORDERED: IBUPROFEN 600 MG TABLET (FP) PO ONE (15:56)
[2024-01-19] MEDS ORDERED: LIDOCAINE 5% TOPICAL PATCH ONE (15:56)
[2024-01-19] MEDS ORDERED: LIDOCAINE PATCH REMOVAL MC SCH (22:00)
== END 2024-01-19 17:03 | disposition home or self-care (01) ==
LOC: FER 15:15
DX: M54.50 Low back pain, unspecified (principal); R10.9 Unspecified abdominal pain
CPT/HCPCS: 74176-TC; 81003; 81015; 84703; 87077; 87086; 99284-25